=== PATIENT | male | born 1990 | race Two or more races ===

== ENCOUNTER 2019-08-11 12:24 | Outpatient (CLI) | payer OTHER | END 2019-08-11 12:34 | disposition home or self-care (01) | LOC: LAB 12:24 | DX: J11.1 Influenza due to unidentified influenza virus with other respiratory manifestations (principal) ==

== ENCOUNTER 2023-08-01 05:30 | Day surgery (SDC) | payer OTHER ==
[2023-08-01] MEDS ORDERED: PERCOCET 5-3251 EACH PO (08:20)
[2023-08-01] MEDS ORDERED: PEPCID AC20 MG PO (08:21)
[2023-08-01] MEDS ORDERED: ZOFRAN8 MG PO (08:21)
[2023-08-01] MEDS ORDERED: DICY20TA PO (08:21)
== END 2023-08-01 11:00 | disposition home or self-care (01) ==
LOC: CIR.AMB 05:30
PROVIDERS: ATTEND Surgery
DX: K80.10 Calculus of gallbladder with chronic cholecystitis without obstruction (principal); K80.43 Calculus of bile duct with acute cholecystitis with obstruction; R10.11 Right upper quadrant pain; R19.4 Change in bowel habit; Z20.822 Contact with and (suspected) exposure to COVID-19